=== PATIENT | female | born 1985 | race Caucasian/White ===

== ENCOUNTER 2019-06-30 10:29 | Outpatient (CLI) | payer OTHER, SELFPAY ==
[2019-06-30 11:20] LABS: Rubella IgG 148.3 IU/mL (0.0-9.0)
[2019-06-30 11:47] LABS: HIV 1 & 2 Antibody Non-Reactive (Non-Reactiv); HIV 1 & 2 Antigen Non-Reactive (Non-Reactiv)
[2019-06-30 11:47] LABS: Hepatitis B Surface Antigen. Non-Reactive (Nonreactive); Hepatitis C Virus Antibody Non-Reactive (Nonreactive)
== END 2019-06-30 10:30 | disposition home or self-care (01) ==
LOC: LAB 10:33
PROVIDERS: PCP Podiatrist Foot & Ankle Surgery; Visit Provider Specialist
DX: Z11.3 Encounter for screening for infections with a predominantly sexual mode of transmission (principal)
CPT/HCPCS: 36415; 86762; 86803; 86900; 87340; 87806

== ENCOUNTER → 2019-11-27 08:59 | Outpatient (BNVA) | payer OTHER, SELFPAY | PROVIDERS: PCP Podiatrist Foot & Ankle Surgery; Visit Provider Podiatrist Foot & Ankle Surgery | DX: S99.911A Unspecified injury of right ankle, initial encounter (principal) | CPT/HCPCS: 73610 ==

== ENCOUNTER 2021-04-08 06:09 | Outpatient (CLI) | payer OTHER, SELFPAY ==
[2021-04-08 07:11] LABS: Progesterone 39.48 ng/mL
== END 2021-04-08 06:10 | disposition home or self-care (01) ==
LOC: LAB 06:11
PROVIDERS: PCP Podiatrist Foot & Ankle Surgery; Visit Provider Specialist
DX: Z32.00 Encounter for pregnancy test, result unknown (principal)
CPT/HCPCS: 36415; 84144; 84702

== ENCOUNTER 2021-09-23 07:33 | Outpatient (CLI) | payer OTHER, SELFPAY | END 2021-09-23 07:34 | disposition home or self-care (01) | PROVIDERS: PCP Podiatrist Foot & Ankle Surgery; Visit Provider Specialist | DX: Z32.00 Encounter for pregnancy test, result unknown (principal) | CPT/HCPCS: 84702 ==